=== PATIENT | female | born 1950 | race Caucasian/White ===

== ENCOUNTER 2020-11-17 09:45 | Emergency (ER) | payer MEDICARE, OTHER ==
[~2020-11-17] VITALS: Ht 167.7 cm; Wt 80.7 kg
--- NOTE | 2020-11-17 10:21 | Diagnostic Imaging Report ---
INDICATION: Chest pain and hypertension. TIME OF EXAM: 10:00 a.m. COMPARISON: No prior studies are available for comparison. FINDINGS: There is thoracic scoliotic curvature. The heart size is prominent which may be owing to portable technique. Lungs are clear. Pulmonary vascularity is normal. No infiltrates are seen. Surgical clips overlie the right lung base. There is no effusion or pneumothorax. IMPRESSION: No acute cardiopulmonary process is detected. Dictated by: Dictated on workstation # [id number]
[2020-11-17 10:28] LABS: BASOPHILS % (AUTO) 1 % (0-10); EOSINOPHILS % (AUTO) 2 % (0-10); HEMATOCRIT 45 % (35-52); HEMOGLOBIN 14.6 G/DL (11.5-16.0); LYMPHOCYTES % (AUTO) 37 % (12-44); MEAN CORPUSCULAR HEMOGLOBIN 26 PG (25-34); MEAN CORPUSCULAR HGB CONC 33 G/DL (32-36); MEAN CORPUSCULAR VOLUME 81 FL (80-99); MEAN PLATELET VOLUME 9.2 FL (7.4-10.4); MONOCYTES % (AUTO) 6 % (0-12); NEUTROPHILS # (AUTO) 2.9 X 10^3 (1.8-7.8); NEUTROPHILS % (AUTO) 54 % (42-75); PLATELET COUNT 228 10^3/uL (130-400); WHITE BLOOD COUNT 5.3 10^3/uL (4.3-11.0)
[2020-11-17 10:29] LABS: BASOPHILS # (AUTO) 0.1 10^3/uL (0.0-0.1); EOSINOPHILS # (AUTO) 0.1 10^3/uL (0.0-0.3); MONOCYTES # (AUTO) 0.3 X 10^3 (0.0-1.0)
[2020-11-17] MEDS ORDERED: LOSA1TAB23 PO (10:34)
[2020-11-17] MEDS ORDERED: KRIL1CAP4 PO (10:34)
[2020-11-17] MEDS ORDERED: OMEP20CA18 PO (10:34)
[2020-11-17] MEDS ORDERED: [UNRECOGNIZED DRUG - OTHER] (10:34)
[2020-11-17] MEDS ORDERED: ACET-3075 PO (10:34)
[2020-11-17] MEDS ORDERED: GABA-490 PO (10:34)
[2020-11-17] MEDS ORDERED: METO-333 PO (10:34)
[2020-11-17] MEDS ORDERED: MULT-1029 PO (10:34)
[2020-11-17] MEDS ORDERED: centrum (10:34)
[2020-11-17 10:44] LABS: BILIRUBIN,TOTAL 0.6 MG/DL (0.1-1.0); BUN/CREATININE RATIO 16; CALCIUM 10.2 MG/DL (8.5-10.1); CARBON DIOXIDE 28 MMOL/L (21-32); CHLORIDE 102 MMOL/L (98-107); CREATININE SERUM 0.69 MG/DL (0.60-1.30); GFR ESTIMATED > 60; GLUCOSE 92 MG/DL (70-105); POTASSIUM 3.5 MMOL/L (3.6-5.0); SODIUM 140 MMOL/L (135-145)
[2020-11-17 10:45] LABS: ALANINE AMINOTRANSFERASE 12 U/L (0-55); ALBUMIN 4.8 GM/DL (3.2-4.5); ALKALINE PHOSPHATASE 81 U/L (40-136); TOTAL PROTEIN 7.2 GM/DL (6.4-8.2)
[2020-11-17] MEDS ORDERED: NS 100 ML (IVPB) BAG IV ONE (11:15)
[2020-11-17] MEDS ORDERED: IOHEXOL 350 MG/ML 150 ML (OMNIPAQUE 350) VIAL IV ONE (11:15)
[2020-11-17] MEDS ORDERED: HOLD METFORMIN - RECEIVED CONTRAST 20 ML VIAL IV SCH (11:15)
[2020-11-17] MEDS ORDERED: CATHETER FLUSH 10 ML SYR IV PRN (11:15)
--- NOTE | 2020-11-17 12:10 | Diagnostic Imaging Report ---
INDICATION: Back pain, hypertension, history of known thoracic aortic aneurysm without repair. The patient also has a posterior both breast cancer and melanoma. COMPARISON: I have no previous. TECHNIQUE: Pre and post IV contrast and CT angiogram chest and abdomen with 2-D and 3-D reconstructions. All CT scans use one or more of the following dose optimizing techniques: automated exposure control, MA and/or KvP adjustment based on patient size and exam type or iterative reconstruction. FINDINGS: CHEST: The aortic root and sinotubular junction appeared unremarkable. The ascending aorta is dilated measuring 4.5 cm maximal. No evidence for mural hemorrhage, dissection or rupture. Aortic arch was normal in caliber. The descending thoracic aorta showed normal distal tapering. Branching pattern of the great vessels is unremarkable. The left vertebral arises at the base of the takeoff of the left subclavian artery. The visualized lower cervical vertebrals and common carotids are patent. The bilateral subclavian artery is patent. Descending thoracic aorta is normal in caliber and showed normal distal tapering. No mural hemorrhage, dissection or rupture. There is no pleural or pericardial fluid or hemorrhage. No mediastinal or periaortic hematoma. Pulmonary arterial branches are well opacified and patent. Slight zones of perihilar and basilar partial atelectasis but no findings suggestive of pneumonia or pulmonary edema. No acute chest wall pathology. ABDOMEN: The abdominal aorta is normal in caliber widely patent and unremarkable. No mural hemorrhage, dissection, aneurysm, rupture or stenosis. The aorta bifurcation is patent and the visualized bilateral common iliacs are widely patent. The celiac, the superior mesenteric and the inferior mesenteric arteries as well as those vessels' primary branches are all well opacified and widely patent. The main renal arteries bilaterally are widely patent. There are no findings of end organ ischemia. Liver, spleen, adrenals and pancreas are unremarkable. No bile duct dilatation. There is incidental perfusion anomaly or flash filling hemangioma in the segment 6 of the right hepatic lobe posteroinferiorly. The kidneys are unobstructed. There is no ascites, abscess, hematoma or acute fluid collection. No contrast extravasation. There is an incidental right lateral abdominal wall lipoma that is a benign finding. IMPRESSION: 1. A 4.5 cm ascending aorta. No acute thoracoabdominal or arterial pathology. 2. Clear lungs. No mass or thoracic adenopathy. Negative for PE. 3. No abdominal ischemia, stenosis or acute arterial pathology. No obstructive features, inflammatory process, ascites, hemorrhage or suspicious mass. Dictated by: Dictated on workstation # [id number]
[2020-11-17] MEDS ORDERED: cloNIDine 0.2 MG (CATAPRES) TAB PO ONE (12:15)
--- NOTE | 2020-11-17 13:27 | ED General ---
General Chief Complaint: Chest Pain Stated Complaint: ELEV BP Nursing Triage Note: Patient presents to ER reporting sent as referral from Dr Rao's office with pt stating high blood pressure with pressure in back to chest region. Earlier today had a sharp pain at 0700 after getting up. Nursing Sepsis Screen: No Definite Risk Source of Information: Patient Exam Limitations: No Limitations History of Present Illness Date Seen by Provider: November 17, 2020 Time Seen by Provider: 10:00 Initial Comments Patient is a 70-year-old female with history of hypertension and known thoracic aortic aneurysm who presents from PCPs office with complaints of chest pain. Patient reports pain in her upper back between her shoulder blades and anterior chest described as dull and aching. Pain is currently rated as mild but was more intense earlier this morning when it began 2 hours prior to ED arrival. Patient denies nausea, vomiting, sweats. Denies abdominal pain. Denies lightheadedness, dizziness. Denies headache. Denies extremity weakness or loss of sensation. No other acute symptoms or complaints. No recent illnesses. Of note, patient's blood pressure is 180s over 100s. She states she took her blood pressure medications prior to ED arrival. Patient's aneurysm was last measured in fall 2019 and was 4.3 mm at that time. Patient follows with CT surgery in [facility] in [facility]. Timing/Duration: 1-3 Hours, 1 Day Severity: Mild Modifying Factors: improves with Other Associated Systoms: Other Allergies and Home Medications Allergies Coded Allergies: No Known Drug Allergies (Unverified , 11/17/20) Home Medications Acetaminophen/Diphenhydramine 1 Each Tablet, 1 EACH PO HS, (Reported) Last Action: New Order Gabapentin 400 Mg Capsule, 400 MG PO TID, (Reported) Last Action: New Order Krill Oil/Lutz-3/Dha/Epa 1 Each Capsule, 1 EACH PO DAILY, (Reported) Last Action: New Order Losartan/Hydrochlorothiazide 1 Each Tablet, 1 TAB PO DAILY, (Reported) Last Action: New Order Metoprolol Tartrate 25 Mg Tablet, 50 MG PO HS, (Reported) Last Action: New Order Multivit-Min/FA/Lycopene/Lut 1 Each Tablet, 1 EACH PO DAILY, (Reported) Last Action: New Order Omeprazole 20 Mg Capsule.dr, 20 MG PO DAILY, (Reported) Last Action: New Order Patient Home Medication List Home Medication List Reviewed: Yes Review of Systems Review of Systems Constitutional: no symptoms reported EENTM: no symptoms reported Respiratory: no symptoms reported Cardiovascular: no symptoms reported Gastrointestinal: no symptoms reported Genitourinary: no symptoms reported Musculoskeletal: no symptoms reported Skin: no symptoms reported Psychiatric/Neurological: No Symptoms Reported Hematologic/Lymphatic: No Symptoms Reported Immunological/Allergic: no symptoms reported All Other Systems Reviewed Negative Unless Noted: Yes Past [id number]-Tjvigh Hx Past Med/Social Hx: Reviewed Nursing Past Med/Soc Hx Patient Social History Alcohol Use: Rarely Uses Smoking Status: Never a Smoker 2nd Hand Smoke Exposure: No Recent Infectious Disease Expo: No Recent Hopitalizations: No Seasonal Allergies Seasonal Allergies: No Past Medical History Surgeries: Yes (L Mastectomy, Bilat cataract, Bladder pin-up x 2, R THR/L THR, Carpal Tunne) Adenoidectomy, Breast, Eye Surgery, Gallbladder, Hysterectomy, Joint Replacement, Orthopedic, Tonsillectomy Respiratory: No Cardiac: Yes (Thoracic aneurysm ) Aneurysm, Hypertension 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 oz. kg; 28.00 BMI Method: General Appearance: No Apparent Distress, WD/WN Eyes: Bilateral Eye Normal Inspection, Bilateral Eye PERRL, Bilateral Eye EOMI HEENT: PERRL/EOMI, Normal ENT Inspection, Pharynx Normal Respiratory: Chest Non Tender, Lungs Clear Cardiovascular: Regular Rate, Rhythm, Bradycardia Back: Normal Inspection Extremity: Non Tender, No Calf Tenderness Neurologic/Psychiatric: Alert, Oriented x3 Skin: Normal Color Focused Exam Sepsis Stage: Ruled Out Progress/Results/Core Measures Suspected Sepsis Recent Fever Within 48 Hours: No Infection Criteria Present: None New/Unexplained Altered Menta: No Sepsis Screen: No Definite Risk SIRS Temperature: Pulse: 57 Respiratory Rate: 20 Laboratory Tests 11/17/20 09:55: White Blood Count 5.3 Blood Pressure 190 /97 Mean: 128 Laboratory Tests 11/17/20 09:55: Creatinine 0.69, INR Comment 1.0, Platelet Count 228, Total Bilirubin 0.6 Results/Orders Lab Results Laboratory Tests Test 11/17/20 09:55 11/17/20 12:00 Range/Units White Blood Count 5.3 4.3-11.0 10^3/uL Red Blood Count 5.51 4.35-5.85 10^6/uL Hemoglobin 14.6 11.5-16.0 G/DL Hematocrit 45 35-52 % Mean Corpuscular Volume 81 80-99 FL Mean Corpuscular Hemoglobin 26 25-34 PG Mean Corpuscular Hemoglobin Concent 33 32-36 G/DL Red Cell Distribution Width 14.6 H 10.0-14.5 % Platelet Count 228 130-400 10^3/uL Mean Platelet Volume 9.2 7.4-10.4 FL Immature Granulocyte % (Auto) 0 % Neutrophils (%) (Auto) 54 42-75 % Lymphocytes (%) (Auto) 37 12-44 % Monocytes (%) (Auto) 6 0-12 % Eosinophils (%) (Auto) 2 0-10 % Basophils (%) (Auto) 1 0-10 % Neutrophils # (Auto) 2.9 1.8-7.8 X 10^3 Lymphocytes # (Auto) 2.0 1.0-4.0 X 10^3 Monocytes # (Auto) 0.3 0.0-1.0 X 10^3 Eosinophils # (Auto) 0.1 0.0-0.3 10^3/uL Basophils # (Auto) 0.1 0.0-0.1 10^3/uL Immature Granulocyte # (Auto) 0.0 0.0-0.1 10^3/uL Prothrombin Time 13.0 12.2-14.7 SEC INR Comment 1.0 0.8-1.4 Activated Partial Thromboplast Time 30 24-35 SEC Sodium Level 140 135-145 MMOL/L Potassium Level 3.5 L 3.6-5.0 MMOL/L Chloride Level 102 98-107 MMOL/L Carbon Dioxide Level 28 21-32 MMOL/L Anion Gap 10 5-14 MMOL/L Blood Urea Nitrogen 11 7-18 MG/DL Creatinine 0.69 0.60-1.30 MG/DL Estimat Glomerular Filtration Rate > 60 BUN/Creatinine Ratio 16 Glucose Level 92 70-105 MG/DL Calcium Level 10.2 H 8.5-10.1 MG/DL Corrected Calcium 8.5-10.1 MG/DL Total Bilirubin 0.6 0.1-1.0 MG/DL Aspartate Amino Transf (AST/SGOT) 19 5-34 U/L Alanine Aminotransferase (ALT/SGPT) 12 0-55 U/L Alkaline Phosphatase 81 40-136 U/L Troponin I < 0.30 < 0.30 <0.30 NG/ML Total Protein 7.2 6.4-8.2 GM/DL Albumin 4.8 H 3.2-4.5 GM/DL My Orders Orders - JERALD CAMPOS DO Cbc With Automated Diff (11/17/20 10:00) Comprehensive Metabolic Panel (11/17/20 10:00) Cta Aorta W/Wo Ct Abd W/O (11/17/20 10:00) Troponin I Fs (11/17/20 10:00) Ekg-Prn For Chest Pain Or Rhyt (11/17/20 10:00) Protime With Inr (11/17/20 10:00) Partial Thromboplastin Time (11/17/20 10:00) Chest 1 View Ap/Pa Only (11/17/20 10:00) Iohexol Injection (Omnipaque 350 Mg/Ml 1 (11/17/20 11:15) Received Contrast (Hold Metformin- Contr (11/17/20 11:15) Sodium Chloride Flush (Catheter Flush Sy (11/17/20 11:15) Ns (Ivpb) (Sodium Chloride 0.9% Ivpb Bag (11/17/20 11:15) Troponin I Fs (11/17/20 11:55) Clonidine Tablet (Catapres Tablet) (11/17/20 12:15) Medications Given in ED Current Medications Medications Dose Ordered Sig/Nidia Route Start Time Stop Time Status Last Admin Dose Admin Clonidine HCl 0.2 mg ONCE ONCE PO 11/17/20 12:15 11/17/20 12:16 DC 11/17/20 12:11 0.2 MG Iohexol 125 ml ONCE ONCE IV 11/17/20 11:15 11/17/20 11:16 DC 11/17/20 11:19 125 ML Sodium Chloride 10 ml NEEDED PRN IV 11/17/20 11:15 11/17/20 11:19 10 ML Sodium Chloride 100 ml ONCE ONCE IV 11/17/20 11:15 11/17/20 11:16 DC 11/17/20 11:19 100 ML Vital Signs/I&O 11/17/20 11/17/20 09:47 09:47 Temp 36.1 Pulse 57 Resp 20 B/P (MAP) 203/87 (125) 190/97 (128) O2 Delivery Room Air Room Air Capillary Refill : Less Than 3 Seconds Blood Pressure Mean: 128 Departure Communication (Admissions) EKG: Sinus bradycardia, rate 56, GA 202, QRS, 117, QTc 419, no acute ST-T wave changes, Q waves in anterior leads.EKG on 11/17/2020, 9:47 Patient with elevated blood pressure on ED arrival. Blood pressure improved with treatment in the emergency department. Chest pain resolved. CTA chest shows thoracic aneurysm of maximal dimension of 4.5 cm without evidence of acute rupture or dissection. Patient's troponin x2 is negative. She has previously had a heart cath which she said did not reveal coronary disease. Hospital admission/transfer to [facility] offered to patient for further evaluation of chest pain and hypertension. Patient declined. 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 I think this is reasonable. She is instructed that should she develop new or worsening symptoms to immediately return to the emergency department. Patient verbalizes understanding agreement with discharge instruction prior to departure. Impression Primary Impression: Chest pain Additional Impressions: Hypertension Thoracic aortic aneurysm Disposition: 01 HOME, SELF-CARE Condition: Stable Departure-Patient Inst. Referrals: MARIZOL RAO MD (PCP/Family) Primary Care Physician Patient Instructions: High Blood Pressure (DC), Thoracic Aortic Aneurysm, Chest Pain Add. Discharge Instructions: Please resume all home medications and continue to monitor blood pressure twice daily. Follow-up with your PCP and/or furnace loader for further management. Return to the ED if new or worsening symptoms. All discharge instructions reviewed with patient and/or family. Voiced understanding. JERALD CAMPOS DO November 17, 2020 13:27
[2020-11-17 13:35] VITALS: BP 156/89
== END 2020-11-17 13:35 | disposition home or self-care (01) ==
LOC: EDUNIT# 09:45 → ER FS 09:47
DX: R07.9 Chest pain, unspecified (principal); I10 Essential (primary) hypertension; I71.2 Thoracic aortic aneurysm, without rupture; Z79.899 Other long term (current) drug therapy
CPT/HCPCS: 36415; 71045; 74150; 75635; 80053; 84484; 85025; 85610; 85730; 93005

== ENCOUNTER 2021-05-18 09:11 | Outpatient (CLI) | payer MEDICARE, OTHER ==
[~2021-05-18] VITALS: Ht 167.6 cm; Wt 80.3 kg
[~2021-05-18 09:11] MED LIST: ACET-3075 PO; GABA-490 PO; KRIL1CAP4 PO; LOSA1TAB23 PO; METO-333 PO; MULT-1029 PO; OMEP20CA18 PO; [UNRECOGNIZED DRUG - OTHER]; centrum
[2021-05-18 09:15] VITALS: BP 140/79
[2021-05-18] MEDS ORDERED: EPINEPHrine INJECTION 1 MG/ML AMP IM PRN (09:45)
[2021-05-18] MEDS ORDERED: ONDANSETRON 4 MG/2 ML (SDV) Z0FRAN IV PRN (09:45)
[2021-05-18] MEDS ORDERED: diphenhydrAMINE 50 MG/ML INJ (BENADRYL) IV PRN (09:45)
[2021-05-18] MEDS ORDERED: ACETAMINOPHEN 500 MG TAB (TYLENOL) PO PRN (09:45)
[2021-05-18] MEDS ORDERED: CASIRIVIMAB/IMDEVIMAB 1,200 MG in NS (IVPB) 250 ML IV ONE (09:45)
[2021-05-18 11:20] VITALS: BP 119/74
== END 2021-05-18 11:25 | disposition home or self-care (01) ==
LOC: INFUSION 09:11
PROVIDERS: ATTEND Nurse Practitioner Family
DX: U07.1 COVID-19 (principal)